=== PATIENT | male | born 1955 | race Caucasian/White ===

== ENCOUNTER 2023-07-16 11:48 | Day surgery (SDC) | payer OTHER ==
[~2023-07-16] VITALS: Ht 157.5 cm; Wt 63.5 kg
[2023-07-16] MEDS ORDERED: fentaNYL citrate 0.05 MG/ML VIAL ONE (14:10)
[2023-07-16] MEDS ORDERED: diphenhydrAMINE 50 MG/ML VIAL ONE (14:10)
[2023-07-16] MEDS ORDERED: MIDAZOLAM 5 MG/5 ML VIAL ONE (14:10)
[2023-07-16] MEDS ORDERED: fentaNYL citrate 0.05 MG/ML VIAL IVP ONE (15:15)
[2023-07-16] MEDS ORDERED: MIDAZOLAM 2 MG/2 ML VIAL IV ONE (15:15)
== END 2023-07-16 15:05 | disposition home or self-care (01) ==
LOC: MDS 11:48 → MMU 12:46 → MDS 15:05
PROVIDERS: ATTEND Internal Medicine Gastroenterology
DX: Z12.11 Encounter for screening for malignant neoplasm of colon (principal); E11.9 Type 2 diabetes mellitus without complications; I10 Essential (primary) hypertension; E78.00 Pure hypercholesterolemia, unspecified; Z79.899 Other long term (current) drug therapy
CPT/HCPCS: 82948; G0105; J2250; J3010; J1200